=== PATIENT | female | born 1965 | race Native Hawaiian/Other Pacific Islander ===

== ENCOUNTER 2019-06-04 16:49 | Outpatient (CLI) | payer BC ==
[~2019-06-04 16:49] MED LIST: MEDROL DOSEPAK4 MG OR; MOBIC7.5 M1 PO; Z-PAK PO
== END 2019-06-04 23:06 | disposition home or self-care (01) ==
LOC: LABW 16:49
DX: R42 Dizziness and giddiness (principal); R10.9 Unspecified abdominal pain
CPT/HCPCS: 81000

== ENCOUNTER 2019-11-01 10:26 | Outpatient (CLI) | payer BC | END 2019-11-01 19:13 | disposition home or self-care (01) | LOC: CT 10:26 | DX: J01.90 Acute sinusitis, unspecified (principal); R42 Dizziness and giddiness ==

== ENCOUNTER 2022-02-15 09:31 | Outpatient (CLI) | payer OTHER | END 2022-02-15 18:59 | disposition home or self-care (01) | LOC: RAD 09:31 | PROVIDERS: ATTEND Family Medicine | DX: R10.9 Unspecified abdominal pain (principal) ==

== ENCOUNTER 2022-02-17 10:20 | Outpatient (CLI) | payer OTHER | END 2022-02-17 18:51 | disposition home or self-care (01) | LOC: US 10:20 | PROVIDERS: ATTEND Family Medicine | DX: N39.0 Urinary tract infection, site not specified (principal); R10.9 Unspecified abdominal pain; Z87.19 Personal history of other diseases of the digestive system; E78.1 Pure hyperglyceridemia; Z09 Encounter for follow-up examination after completed treatment for conditions other than malignant neoplasm ==